=== PATIENT | female | born 1985 | race African-American/Black ===

== ENCOUNTER 2019-01-17 07:34 | Emergency (ER) | payer BC ==
[~2019-01-17] VITALS: Ht 160 cm; Wt 54.9 kg
[2019-01-17 07:37] VITALS: BP 116/69
[2019-01-17] MEDS ORDERED: dexamethasone 4mg tablet PO ONE (07:50)
[2019-01-17] MEDS ORDERED: ipratropium/albuterol 3ml nebule NEB ONE (07:50)
== END 2019-01-17 08:35 | disposition home or self-care (01) ==
LOC: ER 07:35
DX: J45.909 Unspecified asthma, uncomplicated (principal); F17.200 Nicotine dependence, unspecified, uncomplicated; F12.90 Cannabis use, unspecified, uncomplicated; Z85.89 Personal history of malignant neoplasm of other organs and systems; Z88.8 Allergy status to other drugs, medicaments and biological substances
CPT/HCPCS: 94640; 94760; 99283; J8540